=== PATIENT | female | born 1980 | race Caucasian/White ===

== ENCOUNTER 2023-09-20 22:28 | Emergency (ER) | payer BC ==
[~2023-09-20] VITALS: Ht 160 cm; Wt 65.0 kg
[~2023-09-20 22:28] MED LIST: GABAPENTIN100 MG OR; IMITREX25 MG PO; KEFLEX500 MG OR; NO MEDICATIONS; PROZAC10 MG OR; ULTRAM50 M1 PO; ZOFRAN ODT8 MG SL; ZOFRAN4 MG/TAB PO
[2023-09-20] MEDS ORDERED: ACETAMINOPHEN 500 MG TAB PO ONE (22:45)
[2023-09-20] MEDS ORDERED: IBUPROFEN 600 MG/TAB PO ONE (22:45)
[2023-09-20 23:28] VITALS: BP 124/68
== END 2023-09-20 23:28 | disposition home or self-care (01) | DRG 563 ==
LOC: ED 22:28
DX: S83.91XA Sprain of unspecified site of right knee, initial encounter (principal); X50.0XXA Overexertion from strenuous movement or load, initial encounter; Y93.89 Activity, other specified